=== PATIENT | male | born 1935 | race Caucasian/White ===

== ENCOUNTER 2016-06-05 13:32 | Inpatient (IN) | payer OTHER ==
[2016-06-05] VITALS (16 sets, daily range): BP systolic 79–147; BP diastolic 48–118
[~2016-06-05] VITALS: Ht 188 cm; Wt 140.5 kg
[~2016-06-05 13:32] MED LIST: ADVAIR 250/501 DISK IH; ALBUTEROL SULFAT2 MG PO; ANSAID100 MG PO; ANTIBIOTIC PO; ASPIRIN325 MG PO; ATROVENT 00.5 MG/2.5 IH; DIABETA2.5 MG PO; LASIX40 MG PO; MICRO-K10 ME1 PO; SIMVASTATIN80 MG PO; SYNTHROID50 MCG PO
[2016-06-05 14:25] LABS: BASOPHIL COUNT 0.1 K/uL (0-0.1); EOSINOPHIL (%) 0.3 % (0-5); EOSINOPHIL COUNT 0.1 K/uL (0-0.3); HEMATOCRIT 47.9 % (38.0-50.0); IMMATURE GRANULOCYTE (%) 1.1 % (0.0-0.7); IMMATURE GRANULOCYTE COUNT 2.7 K/uL; LYMPHOCYTE COUNT 2.1 K/uL (1.0-2.8); MCH 31.4 PG (29.0-34.0); MCV 92.3 FL (86-99); MEAN PLAT.VOLUME 10.9 uM^3 (9.0-12.4); MONOCYTE (%) 6.1 % (3-12); MONOCYTE COUNT 1.5 K/uL (0-0.8); NEUTROPHIL (%) 83.4 % (45-76); NEUTROPHIL COUNT 19.8 K/uL (1.8-6.4); PLATELET COUNT 173 K/uL (156-360); RBC DIS.WIDTH-CV 14.3 % (11.8-14.6); RED BLOOD COUNT 5.19 M/uL (4.00-5.50); WHITE BLOOD COUNT 23.8 K/uL (4.1-10.2)
[2016-06-05 14:57] LABS: CHLORIDE 104 mEq/L (99-109); SODIUM 135 mEq/L (136-147)
[2016-06-05 15:00] LABS: GLUCOSE 256 mg/dL (70-99)
[2016-06-05 15:01] LABS: ANION GAP 16 MEQ/L (2-14)
[2016-06-05 15:02] LABS: TOTAL BILIRUBIN 0.9 mg/dL (0.0-1.0)
[2016-06-05 15:03] LABS: ALKALINE PHOSPHATASE 73 IU/L (3-129); GFR ESTIMATE (CALCULATED) 15 mL/min/
[2016-06-05 15:04] LABS: UREA NITROGEN (BUN) 48 mg/dL (9-23)
[2016-06-05 15:13] LABS: TROP-I INTERPRETATION NEGATIVE; TROPONIN-I < 0.01 ng/mL (0.0-0.30)
[2016-06-05 15:14] LABS: POTASSIUM 6.2 mEq/L (3.7-5.4)
[2016-06-05 17:36] LABS: SAMPLE HEMOLYSIS CHECK 0; SAMPLE ICTERIC CHECK 0; SAMPLE LIPEMIA CHECK 0
[2016-06-05 17:40] LABS: CARBON DIOXIDE (BICARBONATE) 19.1 MEQ/L (20-31)
[2016-06-05 18:59] LABS: POINT-OF-CARE METER ID UU14100415
[2016-06-05 19:36] LABS: CHLORIDE 105 mEq/L (99-109); POTASSIUM 5.4 mEq/L (3.7-5.4)
[2016-06-05 19:37] LABS: SODIUM 137 mEq/L (136-147)
[2016-06-05] MEDS ORDERED: HYDROCHLOROTHIA25 MG PO (19:37)
[2016-06-05] MEDS ORDERED: METFORMIN HCL500 MG PO (19:37)
[2016-06-05 19:38] LABS: GLUCOSE 162 mg/dL (70-99)
[2016-06-05] MEDS ORDERED: LISINOPRIL10 MG PO (19:38)
[2016-06-05] MEDS ORDERED: MICRO-K10 ME2 PO (19:39)
[2016-06-05 19:40] LABS: ANION GAP 12 MEQ/L (2-14)
[2016-06-05] MEDS ORDERED: HYDROCODON-ACE1 EAC7 PO (19:41)
[2016-06-05 19:42] LABS: GFR ESTIMATE (CALCULATED) 14 mL/min/
[2016-06-05 19:43] LABS: UREA NITROGEN (BUN) 50 mg/dL (9-23)
[2016-06-05 20:59] LABS: CREATINE KINASE 66 IU/L (1-294)
[2016-06-06 01:35] VITALS: BP 116/56
[2016-06-06 01:50] LABS: EOSINOPHIL (%) 1.2 % (0-5); EOSINOPHIL COUNT 0.2 K/uL (0-0.3); HEMATOCRIT 43.4 % (38.0-50.0); IMMATURE GRANULOCYTE (%) 0.7 % (0.0-0.7); IMMATURE GRANULOCYTE COUNT 1.3 K/uL; LYMPHOCYTE COUNT 2.6 K/uL (1.0-2.8); MCH 31.6 PG (29.0-34.0); MCHC 33.6 G/DL (30.0-36.0); MCV 93.9 FL (86-99); MONOCYTE (%) 7.2 % (3-12); MONOCYTE COUNT 1.3 K/uL (0-0.8); NEUTROPHIL (%) 76.3 % (45-76); NEUTROPHIL COUNT 13.8 K/uL (1.8-6.4); RBC DIS.WIDTH-CV 14.2 % (11.8-14.6); RBC DIS.WIDTH-SD 46.6 % (39-53); RED BLOOD COUNT 4.62 M/uL (4.00-5.50); WHITE BLOOD COUNT 18.1 K/uL (4.1-10.2)
[2016-06-06 02:55] LABS: MEAN PLAT.VOLUME 10.3 uM^3 (9.0-12.4); PLAT.SUFFICIENCY DECREASED
[2016-06-06 02:56] LABS: PLATELET COUNT 116 K/uL (156-360)
[2016-06-06 05:28] VITALS: BP 127/63
[2016-06-06 07:01] LABS: ANION GAP 15 MEQ/L (2-14); CHLORIDE 104 MEQ/L (99-109); GFR ESTIMATE (CALCULATED) 14 mL/min/; GLUCOSE 197 mg/dL (70-99); POTASSIUM 5.5 MEQ/L (3.7-5.4); SAMPLE HEMOLYSIS CHECK 0; SAMPLE ICTERIC CHECK 0; SAMPLE LIPEMIA CHECK 0; SODIUM 134 MEQ/L (136-147); UREA NITROGEN (BUN) 54 mg/dL (9-23)
[2016-06-06 08:10] VITALS: BP 129/60
[2016-06-06 10:39] LABS: INTER. NORMALIZED RATIO 1.1; PROTHROMBIN TIME 11.7 (9.2-11.2); PTT 31.5 (25-32)
[2016-06-06 11:27] LABS: POINT-OF-CARE METER ID UU13113698; POINT-OF-CARE USER ID NUTSLF44
[2016-06-06 12:15] VITALS: BP 133/88; BP 150/75
[2016-06-06 16:55] VITALS: BP 150/76
[2016-06-06 17:00] LABS: POINT-OF-CARE METER ID UU13113698; POINT-OF-CARE USER ID NUTSLF44
== END 2016-06-06 19:19 | disposition short-term general hospital (02) | DRG 300 ==
LOC: EME → EDBD 13:32 → EME 13:32 → EDOF 23:55 → 4EAST 23:55
PROVIDERS: Emergency Medicine; Hospitalist; Internal Medicine; Surgery
DX: I82.423 Acute embolism and thrombosis of iliac vein, bilateral (principal); N17.9 Acute kidney failure, unspecified; E87.2 Acidosis; E11.22 Type 2 diabetes mellitus with diabetic chronic kidney disease; N18.3 Chronic kidney disease, stage 3 (moderate); J44.9 Chronic obstructive pulmonary disease, unspecified; G47.30 Sleep apnea, unspecified; Z86.718 Personal history of other venous thrombosis and embolism; E78.00 Pure hypercholesterolemia, unspecified; K21.9 Gastro-esophageal reflux disease without esophagitis; M48.06 Spinal stenosis, lumbar region; I70.1 Atherosclerosis of renal artery; Z79.84 Long term (current) use of oral hypoglycemic drugs; I70.203 Unspecified atherosclerosis of native arteries of extremities, bilateral legs; I70.92 Chronic total occlusion of artery of the extremities; Z95.9 Presence of cardiac and vascular implant and graft, unspecified; E87.5 Hyperkalemia; E66.9 Obesity, unspecified; Z68.35 Body mass index [BMI] 35.0-35.9, adult
CPT/HCPCS: 71010; 71275; 72148; 74174; 75635; 80048 91; 80053; 80069; 81003; 82010; 82550 91; 82803; 82948; 83605; 83880; 83880 GA; 84484; 85025; 85025 91; 85610; 85730; 86850; 86900; 86901; 87040; 93005; 93970; 94640; 94640 76; 94799; 99202; 99281; 99285; J1644; J1815; J2405; J2543; J3010; J3370; J7030; J7050